=== PATIENT | male | born 1995 | race Caucasian/White ===

== ENCOUNTER → 2017-10-14 | Outpatient (CLI) | payer OTHER ==
--- NOTE | 2017-10-14 09:43 | RADIOLOGY IMAGING REPORT ---
FACILITY: [facility] PATIENT NAME: Henri Nowak : 1995 MR: [id number] V: [id number] EXAM DATE: ORDERING PHYSICIAN: JULIO RUIZ TECHNOLOGIST: Location: [facility] [place] Patient: Henri Nowak : 1995 Visit/Account:[id number] Date of Sevice: 10/14/2017 ORBITS FOREIGN BODY 1 VIEW Pre-MRI orbits FINDINGS: Study demonstrates no metallic foreign bodies. IMPRESSION: 1. Negative pre-MRI orbital views Report Dictated By: Dutch Huerta MD at 10/14/2017 9:20 AM Report E-Signed By: Dutch Huerta MD at 10/14/2017 9:21 AM WSN:[id number]
--- NOTE | 2017-10-14 10:57 | RADIOLOGY IMAGING REPORT ---
FACILITY: [facility] [place] PATIENT NAME: Henri Nowak : 1995 MR: [id number] V: [id number] EXAM DATE: ORDERING PHYSICIAN: JULIO RUIZ TECHNOLOGIST: Location: [facility] Patient: Henri Nowak : 1995 Visit/Account:[id number] Date of Sevice: 10/14/2017 MRI left knee without contrast Indication: Knee pain. Rugby injury. Comparison: None available. Technique: Multiplanar, multisequence MRI examination is performed of the left knee without contrast. Findings: Examination of the medial compartment demonstrates abnormal morphology and signal involving the perip jarod of the medial meniscal body and the posterior horn. There is vertical longitudinal signal consis tent with a longitudinal red zone tear. There is thickening and partial disruption of the meniscocaps ular junction in this location. The articular cartilage surfaces are normal. Focal contusion involves the posterior rim of the medial tibial plateau. Examination of the lateral compartment demonstrates a normal lateral meniscus. The articular cartilag e surfaces are normal. Impaction type deformity involves the lateral femoral condyle anteriorly with an associated contusion. There is a contusion involving the posterior rim of the lateral tibial plate au. No discrete fracture line. Examination of the patellofemoral compartment demonstrates normal patellar and normal trochlear surfa lamin. There is a high-grade tear of the anterior cruciate ligament near the femoral attachment site. Concer n is for complete rupture in this location. PCL is intact. There is a grade 1-grade 2 sprain of the proximal third of the MCL. There is an associated condylar c ontusion at the origin of the MCL. No high-grade tear. The lateral collateral ligament complex is maintained. The extensor mechanism is intact. A large joint effusion is seen. IMPRESSION: 1. High-grade tear of the left knee anterior cruciate ligament near the femoral attachment site. Conc clifton is for complete rupture. There are associated tibial plateau and condylar contusions as above. 2. Vertical, longitudinal tear of the body and posterior horn of the medial meniscus with partial dis ruption of the meniscocapsular junction. Meniscal tear seen in the region of the red zone. 3. Grade 1-grade 2 proximal third MCL sprain. 4. Large joint effusion. Report Dictated By: Andrea Callaway at 10/14/2017 10:46 AM Report E-Signed By: Andrea Callaway at 10/14/2017 10:53 AM WSN:[id number]
== END ==
LOC: MRI 07:18
PROVIDERS: ATTEND Emergency Medicine Sports Medicine
DX: S83.252A Bucket-handle tear of lateral meniscus, current injury, left knee, initial encounter (principal); M23.92 Unspecified internal derangement of left knee; M25.462 Effusion, left knee; S86.812A Strain of other muscle(s) and tendon(s) at lower leg level, left leg, initial encounter
CPT/HCPCS: 70030